=== PATIENT | male | born 1965 | race Caucasian/White ===

== ENCOUNTER → 2016-06-05 | Outpatient (CLI) | payer BC ==
[~2016-06-05] MED LIST: Iopamidol 755 MG/ML 500 ML Multipack Bottle IVPUSH STA
[2016-06-05 12:01] LABS: CHLORIDE,CL 104 mmol/L (98-110); SODIUM,NA 140 mmol/L (136-146)
--- NOTE | 2016-06-05 14:01 | CT ---
CT of the abdomen and pelvis with contrast. HISTORY: Left lower quadrant pain TECHNIQUE: Axial CT images were obtained of the abdomen and pelvis following administration of 100 m L of Isovue-[id number] in the left antecubital fossa without complication. Coronal and sagittal reconstruct ions obtained. FINDINGS: The lung bases are clear, no pleural effusion. Mild dependent atelectasis. The liver, spleen, adrenal glands, and pancreas appear normal. The gallbladder is decompressed. No r etroperitoneal lymphadenopathy or abdominal ascites. The kidneys enhance and function symmetrically without evidence of obstructive uropathy. The large and small bowel are normal in caliber without evidence of obstruction. There is a focal ar ea of stranding adjacent to the distal descending colon with a central fat density. No diverticula n oted within the region. No colonic wall thickening. The appendix appears normal. The urinary bladder is unremarkable. There is increased soft tissue within the region of the left inguinal canal, corre late with previous hernia repair. Tiny fat-containing right inguinal hernia is noted. No free pelvic fluid or pelvic lymphadenopathy. Bridging anterior osteophyte involving the right SI joint. IMPRESSION: 1. Probable epiploic appendagitis evidence of the descending colon.
== END ==
LOC: MW.CHFP 11:20
PROVIDERS: ATTEND Physician Assistant
DX: R10.32 Left lower quadrant pain (principal)
CPT/HCPCS: 36415; 74177; 80053; 85025; 85652; Q9967